=== PATIENT | male | born 1990 | race Caucasian/White ===

== ENCOUNTER 2019-04-04 16:48 | Inpatient (IN) | payer OTHER ==
[~2019-04-04] VITALS: Ht 182.9 cm; Wt 126.7 kg
[2019-04-04] MEDS ORDERED: LAMO100T2 PO (17:16)
--- NOTE | 2019-04-04 17:48 | NUR ---
Pt seen,examined by .
[2019-04-04] MEDS ORDERED: ONDANSETRON 4 MG/2 ML VIAL IV ONE (18:00)
[2019-04-04] MEDS ORDERED: IV NORMAL SALINE 1000 ML BAG IV ONE (18:00)
[2019-04-04 18:15] LABS: BASOPHILS % (AUTO) 0.2 % (0.0-2.0); EOSINOPHILS # (AUTO) 0.1 K/uL (0.0-0.7); EOSINOPHILS % (AUTO) 1.7 % (0.0-7.0); HEMATOCRIT 39.4 % (36.7-47.1); HEMOGLOBIN 13.1 g/dL (12.5-16.3); LYMPHOCYTES # (AUTO) 2.8 K/uL (20.0-40.0); LYMPHOCYTES % (AUTO) 33.7 % (20.5-51.5); MEAN CORPUSCULAR HEMOGLOBIN 28.5 uug (23.8-33.4); MEAN CORPUSCULAR HGB CONC 33 g/dL (32.5-36.3); MEAN CORPUSCULAR VOLUME 85.8 fL (73.0-96.2); MONOCYTES # (AUTO) 0.5 K/uL (2.0-10.0); MONOCYTES % (AUTO) 6.1 % (0.0-11.0); NEUTROPHILS # (AUTO) 4.8 K/uL (1.8-8.9); NEUTROPHILS % (AUTO) 58.3 % (38.5-71.5); PLATELET COUNT (AUTO) 244 K/uL (152-348); WHITE BLOOD COUNT (AUTO) 8.3 K/uL (3.6-10.2)
[2019-04-04] MEDS ORDERED: ONDANSETRON 4 MG/2 ML VIAL ONE (18:17)
[2019-04-04 18:26] LABS: CARBON DIOXIDE 32 mmol/L (21-32); CHLORIDE 104 mmol/L (98-107); CREATININE 1.1 mg/dL (0.6-1.3); GLUCOSE 104 mg/dL (74-106); UREA NITROGEN, BLOOD 13 mg/dL (7-18)
[2019-04-04 18:30] LABS: ETHANOL < 3 MG/DL (0-0)
[2019-04-04 18:32] LABS: ACETAMINOPHEN 2.6 ug/mL (10-30); ALANINE AMINOTRANSFERASE 76 U/L (16-63); ALKALINE PHOSPHATASE 89 U/L (50-136); ASPARTATE AMINOTRANSFERASE 41 U/L (15-37); BILIRUBIN,DIRECT 0.1 mg/dL (0.0-0.2); BILIRUBIN,TOTAL 0.2 mg/dL (0.2-1.0); TOTAL PROTEIN, SERUM 6.9 g/dL (6.4-8.2)
--- NOTE | 2019-04-04 18:38 | NUR ---
Pt remains awake,alert.No seizure activity noted.
[2019-04-04 18:50] LABS: THYROID STIMULATING HORMONE 0.696 mIU/mL (0.358-3.740)
--- NOTE | 2019-04-04 19:13 | NUR ---
report given to Nimo Ventura
--- NOTE | 2019-04-04 19:37 | NUR ---
Pt provided urine sample, sent to lab.
[2019-04-04 19:43] LABS: *BILIRUBIN,URIN NEGATIVE (NEGATIVE); *BLOOD, URINE NEGATIVE (NEGATIVE); *CLARITY,URINE CLEAR (CLEAR); *COLOR,URINE YELLOW (YELLOW); *KETONES,URINE NEGATIVE (NEGATIVE); *UROBILINOGEN,URINE 0.2 E.U./dl (NORMAL); LEUKOCYTE ESTERASE ,URINE NEGATIVE (NEGATIVE); NITRITE, URINE NEGATIVE (NEGATIVE); UGLUCOSE 1+ (NEGATIVE)
[2019-04-04 19:54] LABS: *AMPHETAMINE, URINE NEGATIVE (NEGATIVE); *BARBITURATE, URINE NEGATIVE (NEGATIVE); *CANNABINOID, URINE POSITIVE (NEGATIVE); *COCCAINE, URINE NEGATIVE (NEGATIVE); *OPIATE, URINE NEGATIVE (NEGATIVE); *PHENCYCLIDINE SCREEN,URINE NEGATIVE (NEGATIVE)
[2019-04-04 19:59] LABS: MUCUS,URINE FEW /LPF (0-FEW); SQUAMOUS EPITHELIAL CELL,UR FEW /HPF (NONE SEEN)
[2019-04-04] MEDS ORDERED: HYDROCODONE/APAP 10-325 MG TABLET ONE (20:15)
[2019-04-04] MEDS ORDERED: HYDROCODONE/APAP 10-325 MG TABLET PO ONE (20:15)
--- NOTE | 2019-04-04 21:11 | NUR ---
Call placed to [facility], Karan Morales has been paged.
[2019-04-04] MEDS ORDERED: IV NS 1000 ML 1,000 ML IV PRN (21:19)
--- NOTE | 2019-04-04 21:19 | NUR ---
Dr. Burns on panel call with Karan Morales NP. Patient accepted for admission to [facility], diagnosis: altered mental status.
--- NOTE | 2019-04-04 21:27 | NUR ---
Report given to Lidia ZELAYA Tele.
[2019-04-04] MEDS ORDERED: Z GUARD REMEDY PASTE 57 GM TUBE TOP PRN (21:30)
[2019-04-04] MEDS ORDERED: ONDANSETRON 4 MG/2 ML VIAL IV PRN (21:30)
[2019-04-04] MEDS ORDERED: MAGNESIUM HYDROXIDE 30 ML LIQUID UDC PO PRN (21:30)
[2019-04-04] MEDS ORDERED: ACETAMINOPHEN 325 MG TABLET PO PRN (21:30)
[2019-04-04] MEDS ORDERED: TEMAZEPAM 15 MG CAPSULE PO PRN (21:30)
[2019-04-04] MEDS ORDERED: HYDROCODONE/APAP 5-325MG TABLET PO PRN (21:30)
--- NOTE | 2019-04-04 22:00 | NUR ---
Admitting Notes Patient received into care via oralia from ER. Patient is awake, alert, and oriented x3 with a complaint of 9/10 pain. Patient states he has had 5 seizures in 4 days, ranging from mild to grand mal, and was born with epilepsy/seizure activity. Patient has a history of daily marijuana use and has verbalized an interest in going to rehab for substance abuse. Patient denies any other recreational drug use or alcohol use. Patient admits that he smokes 1/2 pack day in cigarettes and verbalizes interest in wearing nicotine patch, but during the day only because if he wears patch during hours of sleep he experiences nightmares. Patient has history of appendectomy but no other significant medical issues that have not already been documented. IV site is located on left AC 20g and is patent & intact. Prescribed NS @ 75mL/hr started and patient is tolerating well. Initial prescribed medications provided as ordered with no adverse side effects noted or observed. Patient's VS are wnl and patient is stable. Will continue to monitor throughout shift.
[2019-04-04] MEDS: NICOTINE 21 MG/24HR PATCH TD SCH (22:15)
[2019-04-04] MEDS ORDERED: ZOLPIDEM 5 MG TABLET PO PRN (22:15)
[2019-04-04 22:26] VITALS: BP 120/56
[2019-04-04] MEDS: LAMOTRIGINE 100 MG TABLET PO SCH (23:08)
[2019-04-04] MEDS: HYDROCODONE/APAP 10-325 MG TABLET PO PRN (23:09)
--- NOTE | 2019-04-04 23:43 | NUR ---
Printed information regarding patient diagnosis, seizures, smoking cessation, and prescribed medications given to patient.
[2019-04-05 00:50] VITALS: BP 119/53
[2019-04-05] MEDS: LORAZEPAM 2 MG/1 ML VIAL IV PRN ×2 (03:09→04:39)
--- NOTE | 2019-04-05 04:02 | NUR ---
Telemonitor reflects increased HR in patient. Nurse checked on patient, who is sitting up in bed, complaining of pain unrelieved by prescribed medications already given, and that he is still experiencing anxiety. Nurse redirected patient to use relaxation techniques and explained when next pain medication can be given as prescribed and within safe dosing practices. Patient said okay. Nurse will continue to monitor.
--- NOTE | 2019-04-05 04:39 | NUR ---
Patient still complaining of increased anxiety which was unrelieved by previous prescribed dose of 1mg (0.5mL) lorazepam. Spoke with charge nurse who advised can give next dose 30 minutes before next dose is due. Nurse provided prescribed IV lorazepam. Patient asked why MD did not prescribe antianxiety medication that he takes at home, which is Xanax. Nurse questioned patient if he advised MD of home medications when in ER and patient stated that he doesn't remember because everything has been in a "haze." Nurse was bedside with patient when seen by ROGELIO Morales and patient did not mention taking Xanax for anxiety but did advise DNP of history of anxiety/depression, along with epilepsy and seizures, and medications he takes for those diagnoses. Nurse advised patient to tell DNP/MD of prescribed antianxiety medication when seen during rounds in the morning. Patient asked if he could have his pain medication now because he was still in pain. Nurse explained to patient that it would not be safe to give lorazepam and prescribed pain medication together because it could cause adverse effects. Patient asked if adverse effect was "sleep?" Nurse advised that adverse effect, when combining lorazepam and his prescribed pain medication, is respiratory depression, which is very dangerous. Patient said okay and agreed to wait to see if lorazepam helped him. Patient is also complaining of cough x 2 days. Nurse advised patient to notify DNP/MD of cough when seen. Patient said ok. Will continue to monitor.
--- NOTE | 2019-04-05 05:00 | NUR ---
Nurse assisted patient to bathroom where patient experienced a third incident of diarrhea since admission to 3rd floor. Nurse advised charge, c.diff paperwork completed, and stool sample received from patient. When helping patient to bed, patient advised nurse that he was still experiencing extreme pain. Nurse asked patient to explain what pain felt like and where he was experiencing the pain. Patient asked nurse to give him examples of pain description and nurse advised that only patient could provide example as he is the one experiencing the pain. Patient advised that it felt like stabbing pain from his shoulders to his knees. Nurse asked if patient if he had experienced this type of pain before and patient advised that he feels this type of pain after his seizures and that norco usually doesn't help with the pain, and that they "usually give me dilaudid." Nurse advised patient that she would have morning nurse followup with MD with regard to possible change in pain medication.
[2019-04-05 05:41] VITALS: BP 139/80
--- NOTE | 2019-04-05 05:45 | NUR ---
Stool specimen delivered to lab and logged in with appropriate signed paperwork. Will have AM shift follow-up for isolation precaution until stool sample results are returned.
--- NOTE | 2019-04-05 05:50 | NUR ---
Patient was charging vape pipe in room. Nurse explained must place vape in safe keeping until his discharge because it is considered contraband. Vape placed in bag with patient label attached in charge nurse desk and vape pipe added to personal belongings list in chart.
--- NOTE | 2019-04-05 06:15 | NUR ---
Patient slept intermittently after admission to floor, with complaints of pain addressed with prescribed analgesics, as ordered, and according to safe medication practice. Complaints of anxiety addressed with teaching relaxation techniques while anxiety was low, and when relaxation technique were unsuccessful, prescribed antianxiety medication was given as ordered, and according to safe medication practice. Patient experienced three loose stools after admission, with a sample collected and sent to the lab to test for c.diff. IV site is patent and intact with prescribed IVF of NS running @ 75mL/hr. All seizure, safety, and fall precaution measures remain in place. Call light and personal itmes are within reach at all times.
[2019-04-05] MEDS: HYDROCODONE/APAP 10-325 MG TABLET PO PRN (06:39)
[2019-04-05] MEDS ORDERED: PANTOPRAZOLE SODIUM 40 MG TABLET.DR PO SCH (07:00)
[2019-04-05 07:06] LABS: BASOPHILS % (AUTO) 0.2 % (0.0-2.0); EOSINOPHILS # (AUTO) 0.2 K/uL (0.0-0.7); EOSINOPHILS % (AUTO) 3.3 % (0.0-7.0); HEMATOCRIT 38.2 % (36.7-47.1); LYMPHOCYTES # (AUTO) 2.8 K/uL (20.0-40.0); LYMPHOCYTES % (AUTO) 43.9 % (20.5-51.5); MEAN CORPUSCULAR HEMOGLOBIN 29.7 uug (23.8-33.4); MEAN CORPUSCULAR HGB CONC 34 g/dL (32.5-36.3); MEAN CORPUSCULAR VOLUME 87.4 fL (73.0-96.2); MONOCYTES # (AUTO) 0.5 K/uL (2.0-10.0); MONOCYTES % (AUTO) 8.1 % (0.0-11.0); NEUTROPHILS # (AUTO) 2.8 K/uL (1.8-8.9); NEUTROPHILS % (AUTO) 44.5 % (38.5-71.5); PLATELET COUNT (AUTO) 211 K/uL (152-348); RED BLOOD CELL COUNT(AUTO) 4.37 MIL/uL (4.06-5.63); WHITE BLOOD COUNT (AUTO) 6.4 K/uL (3.6-10.2)
--- NOTE | 2019-04-05 07:20 | NUR ---
RECEIVED PATIENT RESTING IN BED, PATIENT REPORTING PAIN, PAIN MEDICATION RECENTLY GIVEN BY CONTRACT LOADER NURSE. NO ACUTE DISTRESS NOTED. BED IN LOWEST POSITION, SIDE RAILS UP X2,CALL LIGHT WITHIN REACH. WILL CONTINUE TO MONITOR.
[2019-04-05 07:23] LABS: CREATININE 1.1 mg/dL (0.6-1.3); MAGNESIUM 1.7 mg/dL (1.8-2.4); PHOSPHOROUS 3.2 mg/dL (2.5-4.9); POTASSIUM 4.1 mmol/L (3.5-5.1)
[2019-04-05] MEDS ORDERED: MAGNESIUM SULFATE/D5W 100 ML IV SCH (07:30)
[2019-04-05] MEDS ORDERED: LORAZEPAM 2 MG/1 ML VIAL IV PRN (07:30)
[2019-04-05] MEDS: LAMOTRIGINE 100 MG TABLET PO SCH (08:22)
[2019-04-05] MEDS: NICOTINE 21 MG/24HR PATCH TD SCH (08:23)
[2019-04-05] MEDS ORDERED: PAROXETINE HCL 20 MG TABLET PO SCH (09:00)
[2019-04-05] MEDS ORDERED: ALPRAZOLAM 0.25 MG TABLET PO SCH (09:00)
[2019-04-05] MEDS: ALPRAZOLAM 0.5 MG TABLET PO SCH ×2 (09:20→13:14)
[2019-04-05] MEDS ORDERED: HYDROCODONE/APAP 5-325MG TABLET PO PRN (09:30)
[2019-04-05 11:41] VITALS: BP 105/63
--- NOTE | 2019-04-05 15:00 | NUR ---
PATIENT LEFT AMA, JORGE L CARRILLO MADE AWARE. PATIENT NOT WILLING TO STAY TO GET CLEARED BY NEUROLOGIST.
--- NOTE | 2019-04-06 13:20 | NUR ---
SOCIAL WORK CONSULT: This scientific writer received consult: "patient would like to go to rehab for marijuana addiction". Patient left AMA prior to this scientific writer met with patient. refuge worker reached out to patient's contact listed on facesheet [[phone]] and left a vmail providing call back number to discuss potential treatment resources with patient over the phone.
== END 2019-04-05 15:03 | disposition left against medical advice (07) | DRG 101 ==
LOC: ER 16:48 → TELE3 21:40 → MEDSURG3 04-05 11:30
PROVIDERS: ADMIT Nurse Practitioner Acute Care; ATTEND Nurse Practitioner Acute Care
DX: G40.909 Epilepsy, unspecified, not intractable, without status epilepticus (principal); G47.00 Insomnia, unspecified; F17.210 Nicotine dependence, cigarettes, uncomplicated; Z79.899 Other long term (current) drug therapy; E66.9 Obesity, unspecified; Z68.33 Body mass index [BMI] 33.0-33.9, adult; F32.9 Major depressive disorder, single episode, unspecified; Z71.3 Dietary counseling and surveillance; F41.9 Anxiety disorder, unspecified; R73.9 Hyperglycemia, unspecified; H53.2 Diplopia; F12.20 Cannabis dependence, uncomplicated
CPT/HCPCS: 36415; 70030-TC; 70450; 80307; 83735; 84100; 84443; 85025; 85730; 87086; 93005; A4663; G0378; G0480; G0480-TC; J2060; J2405; J3475; J7030

== ENCOUNTER 2020-01-13 00:09 | Emergency (ER) | payer OTHER ==
[~2020-01-13] VITALS: Ht 182.9 cm; Wt 122.5 kg
[~2020-01-13 00:09] MED LIST: LAMO100T2 PO
--- NOTE | 2020-01-13 00:35 | NUR ---
Dr. Burns at bedside for MSE. Patient placed on seizure precautions.
[2020-01-13] MEDS ORDERED: levETIRAcetam IV 500 MG in IV DEXTROSE 5% 100 ML IV ONE (00:45)
[2020-01-13] MEDS ORDERED: ONDANSETRON 4 MG/2 ML VIAL IV ONE (00:45)
[2020-01-13] MEDS ORDERED: KETOROLAC TROMETHAMINE 30 MG INJ IVP ONE (00:45)
[2020-01-13] MEDS ORDERED: IV NORMAL SALINE 1000 ML BAG IV ONE ×2 (00:45)
[2020-01-13] MEDS ORDERED: ONDANSETRON 4 MG/2 ML VIAL ONE (00:59)
[2020-01-13] MEDS ORDERED: KETOROLAC TROMETHAMINE 30 MG INJ ONE (00:59)
[2020-01-13] MEDS ORDERED: levETIRAcetam 500 MG/5 ML VIAL IV ONE (01:00)
[2020-01-13 01:15] LABS: BASOPHILS % (AUTO) 0.4 % (0.0-2.0); EOSINOPHILS # (AUTO) 0.1 K/uL (0.0-0.7); EOSINOPHILS % (AUTO) 0.9 % (0.0-7.0); HEMATOCRIT 42.3 % (36.7-47.1); HEMOGLOBIN 14.2 g/dL (12.5-16.3); LYMPHOCYTES # (AUTO) 2.3 K/uL (20.0-40.0); LYMPHOCYTES % (AUTO) 23.7 % (20.5-51.5); MEAN CORPUSCULAR HEMOGLOBIN 28.4 uug (23.8-33.4); MEAN CORPUSCULAR HGB CONC 34 g/dL (32.5-36.3); MEAN CORPUSCULAR VOLUME 84.8 fL (73.0-96.2); MONOCYTES # (AUTO) 0.5 K/uL (2.0-10.0); NEUTROPHILS # (AUTO) 6.6 K/uL (1.8-8.9); PLATELET COUNT (AUTO) 298 K/uL (152-348); RED BLOOD CELL COUNT(AUTO) 4.98 MIL/uL (4.06-5.63); WHITE BLOOD COUNT (AUTO) 9.5 K/uL (3.6-10.2)
[2020-01-13 01:27] LABS: CARBON DIOXIDE 26 mmol/L (21-32); CHLORIDE 103 mmol/L (98-107); CREATININE 1.2 mg/dL (0.6-1.3); GLUCOSE 113 mg/dL (74-106); POTASSIUM 3.8 mmol/L (3.5-5.1); UREA NITROGEN, BLOOD 15 mg/dL (7-18)
[2020-01-13 01:28] LABS: ALANINE AMINOTRANSFERASE 77 U/L (16-63); ALKALINE PHOSPHATASE 106 U/L (50-136); ASPARTATE AMINOTRANSFERASE 43 U/L (15-37); BILIRUBIN,DIRECT < 0.1 mg/dL (0.0-0.2); BILIRUBIN,TOTAL 0.3 mg/dL (0.2-1.0); TOTAL PROTEIN, SERUM 7.7 g/dL (6.4-8.2)
--- NOTE | 2020-01-13 02:25 | NUR ---
Patient discharged to home in stable condition. Written and verbal after care instructions given. Patient verbalizes understanding of instructions. Stressed follow up or return to ER for worsening s/s. Patient ambulated out of ER via wheelchair, no acute signs of distress, VSS, all belongings taken, IV site discontinued, assisted patient to vehicle, no falls noted, to be driven home by girlfriend via private vehicle.
[2020-01-13 02:27] VITALS: BP 124/66
== END 2020-01-13 02:34 | disposition home or self-care (01) ==
LOC: ER 00:13
DX: G40.909 Epilepsy, unspecified, not intractable, without status epilepticus (principal); F41.9 Anxiety disorder, unspecified; F17.210 Nicotine dependence, cigarettes, uncomplicated; Z79.899 Other long term (current) drug therapy
CPT/HCPCS: 36415; 80048; 80076; 83605; 85025; 96365; 96375; 99284; J1885; J1953; J2405; J7060; A4663; J7030